=== PATIENT | female | born 1955 | race Caucasian/White ===

== ENCOUNTER 2016-10-15 17:25 | Inpatient (IN) | END 2016-10-22 12:30 | disposition home or self-care (01) | DRG 391 | DX: R19.09 Other intra-abdominal and pelvic swelling, mass and lump (principal); I50.33 Acute on chronic diastolic (congestive) heart failure; Z68.45 Body mass index [BMI] 70 or greater, adult; J44.9 Chronic obstructive pulmonary disease, unspecified; E11.9 Type 2 diabetes mellitus without complications; D63.8 Anemia in other chronic diseases classified elsewhere; Z86.718 Personal history of other venous thrombosis and embolism; R91.8 Other nonspecific abnormal finding of lung field; Z79.02 Long term (current) use of antithrombotics/antiplatelets; E66.01 Morbid (severe) obesity due to excess calories; J45.909 Unspecified asthma, uncomplicated; I11.0 Hypertensive heart disease with heart failure ==